=== PATIENT | female | born 1990 ===

== ENCOUNTER 2025-08-28 09:25 | Emergency (ER) | payer OTHER ==
[~2025-08-28] VITALS: Ht 162.6 cm; Wt 54.4 kg
[2025-08-28 09:31] VITALS: BP 107/73; O2SAT 99
[2025-08-28] MEDS ORDERED: CEFTRIAXONE SODIUM 1,000 MG VIAL IM ONE (11:30)
[2025-08-28] MEDS ORDERED: GUAIFENESIN 200 MG/10 ML BLIST.PACK PO ONE (11:30)
[2025-08-28] MEDS ORDERED: ACETAMINOPHEN 325 MG TABLET PO ONE (11:30)
[2025-08-28 13:16] LABS: BASO % 0.3 % (0.1-1.2); EOS # 0.13 (0.04-0.54); EOS % 1.1 % (0.7-7.0); LYMPH # 1.57 (1.18-3.74); LYMPH % 13.1 % (19.3-53.1); MEAN PLATELET VOLUME 11.30 fl (9.4-12.4); MONO # 1.23 (0.24-0.82); MONO % 10.3 % (4.7-12.5); NEUT # 8.96 (1.56-6.13); NEUT % 74.7 % (34.0-71.1); RED CELL DISTRIBUTION WIDTH 13.0 % (11.6-14.4)
[2025-08-28] MEDS ORDERED: CIPROFLOXACIN HCL 0.175 MG/DR DROPS OP SCH (14:00)
[2025-08-28 14:35] LABS: BUN CREA RATIO 10.0 (7.0-25.0); CREATININE SERUM 0.71 mg/dL (0.55-1.02); GFR 95.4; GLUCOSE FASTING 86.0 mg/dL (65-100); OSMOLALITY SERUM 277.0 MOSM/KG (275-295)
[2025-08-28 14:44] LABS: COVID-19 AG NEGATIVE (NEGATIVE)
== END 2025-08-28 18:22 | disposition left against medical advice (07) ==
LOC: ER 09:25
PROVIDERS: General Practice
DX: J11.1 Influenza due to unidentified influenza virus with other respiratory manifestations (principal); Z20.822 Contact with and (suspected) exposure to COVID-19